=== PATIENT | female | born 1955 | race Caucasian/White ===

== ENCOUNTER 2016-02-07 12:42 | Emergency (ER) | payer OTHER ==
[~2016-02-07] VITALS: Wt 74.0 kg
[~2016-02-07 12:42] MED LIST: ACET325T33 PO; HYDR-3011 PO; HYDR28.340 TOP; KENC1 TOP; PHEN-616 PO; PRED20TA PO; PROM6.25 PO; SULF-182 PO
--- NOTE | 2016-02-07 14:26 | ERD ---
ER Documentation Chief Complaint Date/Time DATE: 02/07/16 TIME: 14:19 Chief Complaint COUGH, FEVER AT HOME, BODYACHES, HEADACHE HPI 60 otherwise healthy female presents to the emergency department for 3 day history of congestion headache ear pain and body aches. Patient reports she is experiencing these symptoms previously and was diagnosed with bronchitis. Patient denies any history of COPD or asthma exacerbation. Patient denies any recent sick contacts. She has not attempted to treat her symptoms with any medicine at home thus far. Patient denies any nausea, vomiting, diarrhea or intractable fever. ROS All systems reviewed and are negative except as per history of present illness. Medications Home Meds Active Scripts Acetaminophen* (Tylenol*) 325 Mg Tablet, 2 TAB PO Q8 Y for PAIN AND OR ELEVATED TEMP, #20 TAB Prov:CARLOTTA CHAPMAN DO 05/21/15 Phenazopyridine Hcl* (Phenazopyridine Hcl*) 200 Mg Tablet, 200 MG PO TID, #6 TAB Prov:CARLOTTA CHAPMAN DO 05/21/15 Sulfamethoxazole-Trimethoprim* (Sulfamethoxazole-Trimethoprim* DS) 800-160 Mg Tablet, 1 TAB PO BID, #6 TAB Prov:CARLOTTA CHAPMAN DO 05/21/15 Promethazine w/Codeine* (Phenergan w/Codeine* Syrup) 5 Ml Syrup, 5 ML PO Q4H Y for COUGH, #120 ML Prov:CARLOTTA CHAPMAN DO 05/21/15 Triamcinolone Acetonide (Triamcinolone Acetonide) 0.1% - 15 Gm Cream.gm., 1 APPLIC TOP BID, #1 TUB Prov:CARLOTTA CHAPMAN DO 05/21/15 Hydrocortisone* Topical (Hydrocortisone* Topical) 0.5%-28.35 Gm Cream..g., 1 APPLIC TOP BID, #1 TUB Prov:YASMANY MINOR MD 05/13/15 Hydroxyzine Hcl* (Hydroxyzine Hcl*) 25 Mg Tablet, 25 MG PO Q8H Y for ITCHING, # 30 TAB Prov:YASMANY MINOR MD 05/13/15 Prednisone* (Prednisone*) 20 Mg Tab, 40 MG PO DAILY for 5 Days, TAB Prov:YASMANY MINOR MD 05/13/15 Allergies Allergies: Coded Allergies: No Known Allergies (Verified Allergy, Unknown, 05/21/15) PMhx/Soc History of Surgery: Yes (RAHEEL for uterine CA) Anesthesia Reaction: No Hx Neurological Disorder: No Hx Respiratory Disorders: No Hx Cardiac Disorders: No Hx Psychiatric Problems: No Hx Miscellaneous Medical Probl: Yes (hyperlipidemia, bronchitis) Hx Alcohol Use: No Hx Substance Use: No Hx Tobacco Use: No Physical Exam Vitals Vital Signs Date Time Temp Pulse Resp B/P Pulse Ox O2 Delivery O2 Flow Rate FiO2 02/07/16 12:59 98.4 89 18 158/98 99 Physical Exam Const: Well-developed, well-nourished, nontoxic appearing, in mild distress upon exam Head: Atraumatic Eyes: Normal Conjunctiva ENT: Moist mucous membranes, pharynx slightly erythematous without signs of tonsillar swelling or exudate. Neck: Full range of motion..~ No meningismus. Resp: Clear to auscultation bilaterally, no wheezes, rhonchi, rales Cardio: Regular rate and rhythm, no murmurs Abd: Soft, non tender, non distended. Normal bowel sounds Skin: No petechiae or rashes Back: No midline or flank tenderness Ext: No cyanosis, or edema Neur: Awake and alert Psych: Normal Mood and Affect Procedures/MDM 60-year-old otherwise healthy female presents with a 3 day history of flulike symptoms. Patient has yet to treat her symptoms with any pain medicine or antipyretics. Patient is currently afebrile, non-hypoxic, non-tachycardic and otherwise stable. Patient was seen and released the flu track today. The patient's clinical presentation is very consistent with an acute viral syndrome. The patient does not exhibit any clinical signs or symptoms concerning for serious bacterial infection or systemic illness. Based on history and clinical exam findings the patient does not appear to have evidence of pneumonia, strep pharyngitis, urinary tract infection, bacteremia, sepsis, or meningitis. For these reasons I do not believe it is necessary to obtain laboratory testing or diagnostic imaging. I believe it would be appropriate for symptom control, and close outpatient primary care follow-up. Patient to begin Tamiflu, albuterol inhaler, and Motrin. Based on patient's history of present illness and physical examination the decision was made to discharge. The patient was re-evaluated after ED treatment and stabilizing measures, and symptoms have improved. There is no evidence of life threatening injuries or illnesses at this time. On re-examination, patient resting in no distress, stable vital signs, reports feeling better and safe for discharge with outpatient follow up with PMD in 1-2 days. Patient given return precautions. Patient expresses understanding of and agreement with plan JERZY CHAVARRIA PA-C Feb 07, 2016 14:26
[2016-02-07] MEDS ORDERED: IBUP-1542 PO (14:28)
[2016-02-07] MEDS ORDERED: OSLT75C PO (14:28)
[2016-02-07] MEDS ORDERED: ALBU18HF INHALATION (14:28)
== END 2016-02-07 18:37 | disposition home or self-care (01) ==
LOC: FTE 12:42 → E/R 18:37
DX: B34.9 Viral infection, unspecified (principal)
CPT/HCPCS: 99284

== ENCOUNTER 2016-07-09 19:36 | Emergency (ER) | payer OTHER ==
[~2016-07-09] VITALS: Ht 157.5 cm; Wt 72.0 kg
[~2016-07-09 19:36] MED LIST changes: +ALBU18HF INHALATION; +IBUP-1542 PO; +OSLT75C PO
[2016-07-09 19:50] VITALS: Ht 157.5 cm; Wt 72.0 kg
[2016-07-09] MEDS ORDERED: ONDANSETRON 4 MG INJ IV STA (20:30)
[2016-07-09] MEDS ORDERED: SOD CHLORIDE 0.9% 1,000 ML IV STA (20:30)
[2016-07-09] MEDS ORDERED: morphine 4 MG/ML VIAL IV STA (20:30)
[2016-07-09] MEDS ORDERED: DICYCLOMINE 20 MG INJ IM ONE (20:30)
[2016-07-09 20:55] LABS: ADD SCAN DIFF NO
[2016-07-09 20:59] LABS: BASOPHILS % 0.3 % (0.0-2.0); EOSINOPHILS # 0.1 10^3/ul (0.0-0.5); EOSINOPHILS % 0.7 % (0.0-7.0); HEMATOCRIT 42.9 % (37.0-47.0); HEMOGLOBIN 14.3 g/dl (12.0-16.0); LYMPHOCYTES # 2.6 10^3/ul (0.8-2.9); LYMPHOCYTES % 27.3 % (15.0-51.0); MEAN CORPUSCULAR HEMOGLOBIN 29.9 pg (29.0-33.0); MEAN CORPUSCULAR HGB CONC 33.3 g/dl (32.0-37.0); MEAN CORPUSCULAR VOLUME 89.6 fl (82.0-101.0); MEAN PLATELET VOLUME 10.4 fl (7.4-10.4); MONOCYTE # 0.8 10^3/ul (0.3-0.9); MONOCYTES % 8.1 % (0.0-11.0); NEUTROPHIL # 6.1 10^3/ul (1.6-7.5); NEUTROPHILS % 63.4 % (39.0-77.0); PLATELET COUNT 208 10^3/UL (140-415); RED BLOOD COUNT 4.79 10^6/ul (4.20-5.40); RED CELL DISTRIBUTION WIDTH 11.7 % (11.5-14.5); WHITE BLOOD COUNT 9.6 10^3/ul (4.8-10.8)
[2016-07-09 21:27] LABS: ALBUMIN 5.1 g/dl (3.3-4.9); ALBUMIN/GLOBULIN RATIO 1.7; BILIRUBIN,INDIRECT 0.1 mg/dl (0-1.1); BILIRUBIN,TOTAL 0.1 mg/dl (0.2-1.3); CALCIUM 9.3 mg/dl (8.4-10.2); CREATININE 0.84 mg/dl (0.44-1.00); TOTAL PROTEIN 8.1 g/dl (6.1-8.1)
--- NOTE | 2016-07-09 21:37 | ERD ---
ER Documentation Chief Complaint Date/Time DATE: 07/09/16 TIME: 21:36 Chief Complaint ABDOMINAL PAIN WITH N/V/D X 4 DAYS HPI 60-year-old Urdu-speaking female prior history of hysterectomy. [employer] use. She was presents with 4 days of symptoms that include nausea, abdominal cramping that is diffuse and moderate with associated loose stool. No recent travel, sick contacts, antibiotics. No fevers or chills. ROS All systems reviewed and are negative except as per history of present illness. Medications Home Meds Active Scripts Ondansetron (Ondansetron Odt) 4 Mg Tab.rapdis, 4 MG PO Q6H Y for NAUSEA AND/OR VOMITING, #30 TAB Prov:ANTHONY MARSH MD 07/09/16 Dicyclomine Hcl* (Bentyl*) 10 Mg Capsule, 10 MG PO QID Y for abdominal cramping , #30 CAP Prov:ANTHONY MARSH MD 07/09/16 Ibuprofen* (Motrin*) 600 Mg Tab, 600 MG PO Q6, #30 TAB Prov:JERZY CHAVARRIA PA-C 02/07/16 Albuterol Sulfate* (Ventolin HFA*) 18 Gm Hfa.aer.ad, 2 PUFF INHALATION Q4H, #1 INHALER Prov:JERZY CHAVARRIA PA-C 02/07/16 Oseltamivir Phosphate* (Tamiflu*) 75 Mg Capsule, 75 MG PO BID for 5 Days, CAP Prov:JERZY CHAVARRIA PA-C 02/07/16 Acetaminophen* (Tylenol*) 325 Mg Tablet, 2 TAB PO Q8 Y for PAIN AND OR ELEVATED TEMP, #20 TAB Prov:CARLOTTA CHAPMAN DO 05/21/15 Phenazopyridine Hcl* (Phenazopyridine Hcl*) 200 Mg Tablet, 200 MG PO TID, #6 TAB Prov:CARLOTTA CHAPMAN DO 05/21/15 Sulfamethoxazole-Trimethoprim* (Sulfamethoxazole-Trimethoprim* DS) 800-160 Mg Tablet, 1 TAB PO BID, #6 TAB Prov:CARLOTTA CHAPMAN DO 05/21/15 Promethazine w/Codeine* (Phenergan w/Codeine* Syrup) 5 Ml Syrup, 5 ML PO Q4H Y for COUGH, #120 ML Prov:CARLOTTA CHAPMAN 05/21/15 Triamcinolone Acetonide (Triamcinolone Acetonide) 0.1% - 15 Gm Cream.gm., 1 APPLIC TOP BID, #1 TUB Prov:CARLOTTA CHAPMAN 05/21/15 Hydrocortisone* Topical (Hydrocortisone* Topical) 0.5%-28.35 Gm Cream..g., 1 APPLIC TOP BID, #1 TUB Prov:YASMANY MINOR MD 05/13/15 Hydroxyzine Hcl* (Hydroxyzine Hcl*) 25 Mg Tablet, 25 MG PO Q8H Y for ITCHING, # 30 TAB Prov:YASMANY MINOR MD 05/13/15 Prednisone* (Prednisone*) 20 Mg Tab, 40 MG PO DAILY for 5 Days, TAB Prov:YASMANY MINOR MD 05/13/15 Allergies Allergies: Coded Allergies: No Known Allergies (Verified Allergy, Unknown, 05/21/15) PMhx/Soc History of Surgery: Yes (RAHEEL for uterine CA) Anesthesia Reaction: No Hx Neurological Disorder: No Hx Respiratory Disorders: No (bronchitis) Hx Cardiac Disorders: No (hyperlipidemia) Hx Psychiatric Problems: No Hx Miscellaneous Medical Probl: Yes Hx Alcohol Use: No Hx Substance Use: No Hx Tobacco Use: No Smoking Status: Never smoker FmHx Family History: No diabetes Physical Exam Vitals Vital Signs Date Time Temp Pulse Resp B/P Pulse Ox O2 Delivery O2 Flow Rate FiO2 07/09/16 19:50 99.4 89 20 127/63 96 Physical Exam General: Well developed, well nourished, no acute distress Head: Normocephalic, atraumatic. Eyes: Pupils equally reactive, EOM intact ENT: Moist mucous membranes Neck: Supple, no lymphadenopathy Respiratory: Lungs clear bilaterally, no distress Cardiovascular: RRR, no murmurs, rubs, or gallops Abdominal: Soft, mild diffuse tenderness without rebound or guarding, negative Roberts sign, no tenderness to McBurney's point, no pulsatile mass : Deferred MSK: No edema, no unilateral swelling, 5/5 strength Neurologic: Alert and oriented, moving all extremities, normal speech, no focal weakness, no cerebellar signs Skin: No rash Psych: Normal mood Result Diagram: 07/09/16204407/09/162044 Results 24 hrs Laboratory Tests Test 07/09/16 20:45 White Blood Count 9.610^3/ul Red Blood Count 4.7910^6/ul Hemoglobin 14.3g/dl Hematocrit 42.9% Mean Corpuscular Volume 89.6fl Mean Corpuscular Hemoglobin 29.9pg Mean Corpuscular Hemoglobin Concent 33.3g/dl Red Cell Distribution Width 11.7% Platelet Count 79343^3/UL Mean Platelet Volume 10.4fl Neutrophils % 63.4% Lymphocytes % 27.3% Monocytes % 8.1% Eosinophils % 0.7% Basophils % 0.3% Nucleated Red Blood Cells % 0.0/100WBC Neutrophils # 6.110^3/ul Lymphocytes # 2.610^3/ul Monocytes # 0.810^3/ul Eosinophils # 0.110^3/ul Basophils # 0.010^3/ul Nucleated Red Blood Cells # 0.010^3/ul Sodium Level 145mmol/L Potassium Level 4.0mmol/L Chloride Level 108mmol/L Carbon Dioxide Level 25mmol/L Anion Gap 16 Blood Urea Nitrogen 11mg/dl Creatinine 0.84mg/dl Glucose Level 116mg/dl Calcium Level 9.3mg/dl Total Bilirubin 0.1mg/dl Direct Bilirubin 0.00mg/dl Indirect Bilirubin 0.1mg/dl Aspartate Amino Transf (AST/SGOT) 41IU/L Alanine Aminotransferase (ALT/SGPT) 59IU/L Alkaline Phosphatase 83IU/L Total Protein 8.1g/dl Albumin 5.1g/dl Globulin 3.00g/dl Albumin/Globulin Ratio 1.70 Lipase 93U/L Current Medications Medications (Trade) Dose Ordered Sig/Radha Route PRN Reason Start Time Stop Time Status Last Admin Dose Admin Sodium Chloride (NS) 1,000 ml @ 1,000 mls/hr Q1H STAT IV 07/09/16 20:30 07/09/16 21:29 DC 07/09/16 20:56 Morphine Sulfate (morphine) 4 mg ONCE STAT IV 07/09/16 20:30 07/09/16 20:31 DC 07/09/16 20:56 Ondansetron HCl (Zofran Inj) 4 mg ONCE STAT IV 07/09/16 20:30 07/09/16 20:31 DC 07/09/16 20:56 Dicyclomine HCl (Bentyl) 10 mg ONCE ONCE IM 07/09/16 20:30 07/09/16 20:31 DC 07/09/16 21:13 Procedures/MDM EKG, MONITORS, & DIAGNOSTIC IMAGING: CT abdomen and pelvis: IMPRESSION: 1. Left and sigmoid colon wall thickening with slightly indistinct herrmann consistent with a nonspecific colitis. 2. Scattered left and sigmoid colon diverticuli without focal changes to suggest diverticulitis. 3. Enlarged fatty liver. 4. No obstructive uropathy. Contracts urinary bladder with nonspecific wall thickening. 5. Degenerate changes lower lumbar spine. 6. Atherosclerotic vascular calcifications. RPTAT: [facility] LAB INTERPRETATION: No significant leukocytosis MEDICAL DECISION MAKING: The patient presents with abdominal pain, cramping, diarrhea. This is most consistent with likely viral process such as viral gastroenteritis. However, the patient does have surgical history and does have diffuse abdominal tenderness, given the patient's age CT imaging would be appropriate. ER COURSE: Patient given IV fluids, pain medication, Bentyl. Repeat abdominal exam is improved. Patient without leukocytosis. The patient's pain is improved. She is safe for discharge. No indication for antibiotics. Likely viral process. CT showing evidence of colitis I kept the patient and/or family informed of laboratory and diagnostic imaging results throughout the emergency room course. DISPOSITION PLAN: We discussed follow up with the patient's primary care doctor within 24 to 48 hours as needed. We also discussed return to the emergency room for worsening symptoms or worsening condition. Outpatient referral: [None required] Discharge Medications: Zofran, Bentyl Departure Diagnosis: Primary Impression: Generalized abdominal pain Additional Impression: Diarrhea Diarrhea type: unspecified type Qualified Code: R19.7 - Diarrhea, unspecified type Condition: ANTHONY Castellanos MD Jul 09, 2016 21:37
[2016-07-09] MEDS ORDERED: DICY10CA60 PO (22:23)
[2016-07-09] MEDS ORDERED: ONDA4TAB14 PO (22:23)
--- NOTE | 2016-07-09 23:00 | RADRPT ---
PROCEDURE: CT Abdomen and Pelvis without contrast. CLINICAL INDICATION: Pain. TECHNIQUE: CT scan of the abdomen and pelvis was performed on a multidetector slice CT scanner. No intravenous contrast material was utilized. Sagittal and coronal reformatted images were obtained fr om the axial source images. Images were reviewed on a high-resolution PACS workstation. Exam CTDlvol = 13 mGy and DLP = 712th Gy-cm. One of the following 3 dose reduction techniques were used: Automat ed exposure control; adjustment of the mA and/or kV according to patient size; or use of iterative r econstruction technique. COMPARISON: None. FINDINGS: There is no obstruction or ileus. The appendix is visualized. There is no evidence for appendiciti s.. There are few scattered colonic diverticuli without evidence for diverticulitis. There is diffu se left and sigmoid colon mild wall thickening slightly indistinct margins consistent with a nonspec ific colitis. There is no free fluid. The liver is enlarged and 19.4 cm and diffusely hypodense/fatty.. No intrahepatic lesions are identi fied. The gallbladder is normal in appearance. There is no definite biliary ductal dilation. Pancrea s is normal in appearance. The spleen is unremarkable.. There are no adrenal masses. The aorta is no rmal caliber. Atherosclerotic vascular calcifications are present. Kidneys are normal in appearance without hydronephrosis, mass or calculus.. Ureters are of normal ca liber and without evidence for an obstructing calculus. The urinary bladder is contracted with nons pecific wall thickening. Neither the uterus nor ovaries are identified. Limited evaluation of the lung bases is unremarkable. There are degenerative changes of the lumbar spine. IMPRESSION: 1. Left and sigmoid colon wall thickening with slightly indistinct herrmann consistent with a nonspecif ic colitis. 2. Scattered left and sigmoid colon diverticuli without focal changes to suggest diverticulitis. 3. Enlarged fatty liver. 4. No obstructive uropathy. Contracts urinary bladder with nonspecific wall thickening. 5. Degenerate changes lower lumbar spine. 6. Atherosclerotic vascular calcifications. RPTAT: [facility] .Devin Hancock MD, MD Date Time Electronically viewed and signed by .Devin Hancock MD, on 07/09/2016 23:00 .K/
[2016-07-09 23:09] VITALS: BP 112/54; PULSE 67; RESP 20; TEMP 99.4
== END 2016-07-09 23:10 | disposition home or self-care (01) ==
LOC: FTE 19:36 → E/R 23:10
DX: R10.84 Generalized abdominal pain (principal); R19.7 Diarrhea, unspecified; R11.0 Nausea; R40.2142 Coma scale, eyes open, spontaneous, at arrival to emergency department; R40.2252 Coma scale, best verbal response, oriented, at arrival to emergency department; R40.2362 Coma scale, best motor response, obeys commands, at arrival to emergency department; Z85.42 Personal history of malignant neoplasm of other parts of uterus
CPT/HCPCS: 36415; 74176; 80053; 83690; 85025; 96372; 96374; 96375; J0500; J2270; J2405; J7030; Z7502

== ENCOUNTER 2016-10-12 14:24 | Day surgery (SDC) | payer OTHER ==
[~2016-10-12] VITALS: Ht 157.5 cm; Wt 68.6 kg
[~2016-10-12 14:24] MED LIST changes: +DICY10CA60 PO; -KENC1 TOP; +ONDA4TAB14 PO; +TRIA15CR55 TOP
[2016-10-12 14:45] VITALS: Ht 157.5 cm; Wt 68.6 kg
[2016-10-12] MEDS ORDERED: ATOR20TA38 PO (14:59)
[2016-10-12] MEDS ORDERED: PANT40TA4 PO (14:59)
[2016-10-12] MEDS ORDERED: ASPI-535 PO (14:59)
[2016-10-12 15:19] VITALS: BP 143/65; PULSE 64; RESP 16
--- NOTE | 2016-10-12 16:19 | OPPN ---
Date/Time of Note Date/Time of Note DATE: 10/12/16 TIME: 16:18 Operative Report Preoperative Diagnosis Abdominal pain Chronic heartburn Screening Postoperative Diagnosis Gastroesophageal reflux disease Gastritis with erosions Internal hemorrhoids No colon neoplasm is identified Operation/Procedure Performed Esophagogastroduodenoscopy and biopsy Colonoscopy Provider: CONNOR GONG MD Anesthesia Type: moderate sedation Estimated blood loss: none Transfusion Required: no Specimens Gastric mucosal biopsy Grafts/Implants: none Complications: no CONNOR GONG MD Oct 12, 2016 16:19
[2016-10-12] MEDS ORDERED: FENTAnyl 50 MCG/ML VIAL ONE (16:26)
[2016-10-12] MEDS ORDERED: MIDAZOLAM 1 MG/ML 2 ML INJ ONE ×2 (16:27)
[2016-10-12 16:40] VITALS: BP 134/74; PULSE 62; RESP 14
[2016-10-12 17:20] VITALS: BP 137/70; PULSE 82; RESP 14
--- NOTE | 2016-10-12 19:04 | GILP ---
DATE OF PROCEDURE: 10/12/2016 PROCEDURE PERFORMED: 1. Esophagogastroduodenoscopy and biopsy. 2. Colonoscopy. SURGEON: Scott Sullivan MD. PREOPERATIVE DIAGNOSIS: 1. Abdominal pain. 2. Chronic heartburn. 3. Screening colonoscopy. POSTOPERATIVE DIAGNOSES: 1. Gastroesophageal reflux disease. 2. Gastritis with erosions. 3. Gastric mucosal biopsies were taken for Helicobacter pylori test. 4. Colonoscopy all the way to the cecum. 5. Adhesions in the sigmoid colon because of previous hysterectomy. 6. Internal hemorrhoids. 7. No colon neoplasm was identified. INDICATION: The patient is a 60-year-old female patient who had upper abdominal pain and chronic heartburn not responding to therapy. The patient also needed a screening colonoscopy. The procedures and possible complications were well explained to the patient. The patient understood and consented to the procedure. DESCRIPTION OF PROCEDURE: Under influence of fentanyl and Versed, the gastroscope was carefully introduced into the esophagus, and under direct vision, it was advanced to the stomach, into the pylorus, into the duodenal bulb, and descending duodenum. FINDINGS: Esophagus, the patient had gastroesophageal reflux disease. Stomach, she had gastritis with erosions. Gastric mucosal biopsies were taken for Helicobacter pylori test. Duodenum was normal. The colonoscope was carefully introduced in the rectum, and under direct vision, it was advanced all the way to the cecum. FINDINGS: The patient had adhesions in the sigmoid colon from previous hysterectomy. She had internal hemorrhoids. No colon neoplasm was identified. She tolerated the procedure very well. There was no complication from the procedure. At the end of procedure, she was awake with stable vital signs and she was discharged home in the care of her family. IMPRESSION: 1. Gastroesophageal reflux disease. 2. Gastritis with erosions. 3. Gastric mucosal biopsies were taken for Helicobacter pylori test. 4. Colonoscopy all the way to the cecum. 5. Adhesions on the sigmoid colon from previous hysterectomy. 6. Internal hemorrhoids. PLAN: 1. Continue omeprazole. 2. Add Zantac 300 mg p.o. nightly. 3. Await H. pylori test report. 4. Because of the poor prep and suboptimal nature of the examination, would recommend. 5. Screening colonoscopy in 2 to 3 years. Dictated By: MD FABIAN Cleaning/adair/brooks /Document#: [id number]
== END 2016-10-12 18:03 | disposition home or self-care (01) ==
LOC: GIL 14:24
PROVIDERS: ATTEND Internal Medicine Gastroenterology
DX: Z12.11 Encounter for screening for malignant neoplasm of colon (principal); K21.9 Gastro-esophageal reflux disease without esophagitis; K29.60 Other gastritis without bleeding; K64.8 Other hemorrhoids
CPT/HCPCS: 43239; 45378; 87081; J2250; J3010; Z7610

== ENCOUNTER 2017-07-03 10:16 | Inpatient (IN) | END 2017-07-07 19:05 | disposition home or self-care (01) | DRG 471 ==

== ENCOUNTER 2018-07-10 16:18 | Emergency (ER) | payer OTHER ==
[~2018-07-10] VITALS: Ht 157.5 cm; Wt 74.0 kg
[~2018-07-10 16:18] MED LIST changes: -ACET325T33 PO; -ALBU18HF INHALATION; +ATOR20TA38 PO; +CYCL5TAB PO; -DICY10CA60 PO; -HYDR-3011 PO; -HYDR28.340 TOP; +ONDA4TAB13 PO; -ONDA4TAB14 PO; -OSLT75C PO; +PANT40TA3 PO; -PHEN-616 PO; +POLY17PO6 PO; -PRED20TA PO; -PROM6.25 PO; -SULF-182 PO; +TRAM50TA PO; -TRIA15CR55 TOP
[2018-07-10 16:50] VITALS: BP 137/61; PULSE 76; RESP 19; Ht 157.5 cm; Wt 74.0 kg
[2018-07-10] MEDS ORDERED: ONDANSETRON (ODT) 4 MG TAB ODT STA (17:23)
[2018-07-10] MEDS ORDERED: MECLIZINE 12.5 MG TAB PO ONE (17:30)
[2018-07-10] MEDS ORDERED: MECL-77 PO (18:13)
[2018-07-10] MEDS ORDERED: ONDA8TAB14 PO (18:13)
--- NOTE | 2018-07-10 18:16 | ERD ---
ER Documentation Chief Complaint Chief Complaint dizziness, headache, itchiness of the left ear HPI 62-year-old female presents with a 2-day history of a spinning type dizziness. Is worse with head. She also has mild occipital headache. She has some itchiness in her left ear. She denies recent URIs, chest pain, shortness of breath, deficits, bowel or bladder incontinence, weakness. ROS All systems reviewed and are negative except as per history of present illness. Medications Home Meds Active Scripts Meclizine Hcl* (Meclizine Hcl*) 25 Mg Tablet, 25 MG PO Q8H PRN for DIZZINESS, #20 TAB Prov:JACKI PURVIS MD 07/10/18 Ondansetron (Ondansetron Odt) 8 Mg Tab.rapdis, 8 MG PO Q6H PRN for NAUSEA AND/OR VOMITING, #10 TAB Prov:JACKI PURVIS MD 07/10/18 Polyethylene Glycol* (Miralax*) 17 Gm Powd.pack, 17 GM PO DAILY, #7 Prov:KURT SYKES MD 03/18/18 Ibuprofen* (Motrin*) 600 Mg Tab, 600 MG PO Q6H PRN for PAIN AND OR ELEVATED TEMP, #30 TAB Prov:KURT SYKES MD 03/18/18 Reported Medications Tramadol Hcl* (Ultram*) 50 Mg Tablet, 50 MG PO Q6H PRN for PAIN, TAB 03/18/18 Pantoprazole* (Protonix*) 40 Mg Tablet.dr, 40 MG PO DAILY, TAB 03/18/18 Ondansetron Hcl* (Zofran*) 4 Mg Tab, 8 MG PO DAILY PRN for NAUSEA AND OR VOMITING, TAB 03/18/18 Cyclobenzaprine Hcl* (Cyclobenzaprine Hcl*) 5 Mg Tablet, 5 MG PO Q12 PRN for MUSCLE SPASMS, #60 TAB 03/18/18 Atorvastatin Calcium* (Atorvastatin Calcium*) 20 Mg Tablet, 20 MG PO QHS, #30 TAB 07/03/17 Allergies Allergies: Coded Allergies: No Known Allergies (Verified Allergy, Unknown, 03/18/18) PMhx/Soc History of Surgery: Yes (HYSTERECTOMY,LOWER BACK,HEMORROIDECTOMY) Anesthesia Reaction: No Hx Neurological Disorder: No Hx Respiratory Disorders: No Hx Cardiac Disorders: No Hx Psychiatric Problems: No Hx Miscellaneous Medical Probl: No Hx Alcohol Use: No Hx Substance Use: No Hx Tobacco Use: No Smoking Status: Never smoker FmHx Family History: No diabetes, No coronary disease, No other Physical Exam Vitals Vital Signs Date Temp Pulse Resp B/P (MAP) Pulse Ox O2 O2 Flow FiO2 Time Delivery Rate 07/10/18 98.1 76 19 137/61 96 16:50 (86) Physical Exam Const: No acute distress Head: Atraumatic Eyes: Normal Conjunctiva. Eyes Andie and extraocular movements intact. Minimal horizontal nystagmus with head movement. ENT: Normal External Ears, Nose and Mouth. Neck: Full range of motion. No meningismus. Resp: Clear to auscultation bilaterally Cardio: Regular rate and rhythm, no murmurs Abd: Soft, non tender, non distended. Normal bowel sounds Skin: No petechiae or rashes Back: No midline or flank tenderness Ext: No cyanosis, or edema Neur: Awake and alert. No pronator drift. Reproducible vertigo bilaterally. Negative cover uncover test or hints exam. No cerebellar signs. Cranial nerves II through XII grossly intact. Psych: Normal Mood and Affect Results 24 hrs Laboratory Tests Test 07/10/18 17:33 07/10/18 17:34 Urine Color YELLOW Urine Clarity CLEAR Urine pH 6.0 Urine Specific [place] 1.016 Urine Ketones NEGATIVE mg/dL Urine Nitrite NEGATIVE mg/dL Urine Bilirubin NEGATIVE mg/dL Urine Urobilinogen NEGATIVE mg/dL Urine Leukocyte Esterase TRACE [place]/ul Urine Microscopic RBC 1 /HPF Urine Microscopic WBC 2 /HPF Urine Hemoglobin NEGATIVE mg/dL Urine Glucose NEGATIVE mg/dL Urine Total Protein NEGATIVE mg/dl Bedside Glucose 101 mg/dL Current Medications Medications Dose Sig/Radha Start Time Status Last (Trade) Ordered Route PRN Stop Time Admin Dose Reason Admin Meclizine 25 mg ONCE ONCE 07/10/18 DC 07/10/18 HCl PO 17:30 07/10/18 17:35 (Antivert) 17:31 Ondansetron 8 mg ONCE STAT 07/10/18 DC 07/10/18 HCl (Zofran ODT 17:23 07/10/18 17:35 Odt) 17:25 Procedures/MDM Shows no significant signs of infection or acute abnormalities. EKG: Rate/Rhythm: Normal Sinus Rhythm. Rate equals 60 QRS, ST, T-waves: No changes consistent w/ acute ischemia Impression: No evidence of ischemia or arrhythmia Accu-Chek normal. Given Antivert and Zofran. CT brain shows no acute abnormalities. Patient presents with signs and symptoms of peripheral vertigo or labyrinthitis. She has no signs or symptoms to suggest central vertigo, neurologic deficits, bleeding, arrhythmias, additional concerning signs or symptoms to suggest emergent causes of presenting complaints. We will treat with Zofran, Antivert, further observation at home and return precautions. The patient was stable with no new complaints during the ER course. Clinically, there is no current evidence to suggest meningitis, sepsis, acute abdomen, pneumonia, stroke, acute coronary syndrome, pulmonary embolism, aortic dissection or any other emergent condition appearing to require further evaluation or hospitalization. Patient counseled regarding my diagnostic impression and care plan. Prior to discharge all que stions answered. Pt agrees with treatment plan and understands strict return precautions. Pt is instructed to follow up with primary care provider within 24- 48 hours. Precautionary instructions provided including instructions to return to the ER if not improving or for any worsening or changing symptoms or concerns. Disclaimer: Inadvertent spelling and grammatical errors are likely due to EHR/dictation software use and do not reflect on the overall quality of patient care. Also, please note that the electronic time recorded on this note does not necessarily reflect the actual time of the patient encounter. Departure Diagnosis: Primary Impression: Vertigo Additional Impression: Dizziness Condition: Stable Patient Instructions: Dizziness, Unk Cause, Vertigo, Unspecified Additional Instructions: Examines normal hoy. probablamente vertigo. Cheque otro vez con bales doctor primario en el proximo ward or regresa para mas o nueva simptomas. JACKI PURVIS MD Jul 10, 2018 18:16
== END 2018-07-10 18:41 | disposition home or self-care (01) ==
LOC: FTE 16:18
DX: R42 Dizziness and giddiness (principal)
CPT/HCPCS: 70450; 81001; 82962; 93005; Z7502; Z7610